=== PATIENT | male | born 1955 | race Caucasian/White ===

== ENCOUNTER 2019-12-28 08:29 | Emergency (ER) | payer MEDICAID ==
--- NOTE | 2019-12-28 08:53 | EDM.PDOC ---
ED HPI GENERAL MEDICAL PROBLEM - General Chief Complaint: Fever Stated Complaint: FEVER/COUGH Time Seen by Provider: 12/28/19 08:53 Source of Information: Reports: Patient History Limitations: Reports: No Limitations - History of Present Illness INITIAL COMMENTS - FREE TEXT/NARRATIVE: 64-year-old male attends the ED after an acute onset of illness occurred last November 20 with acute onset of fever chills headache, loss of appetite and paroxysmal cough. He states he spent the next 3 days in bed with fever chills and rigors and it was 3 days before he could start to have some soup and started to eat. He still coughing paroxysmal he had he started to run a fever again last night and therefore he was advised to come to the ED for follow-up by his primary care physician. Patient is a smoker. His appetite is slowly improving. He has not had any nausea vomiting or diarrhea. Still feeling fairly weak. Is day 9 post onset of illness. Onset: Sudden Onset Date: 12/19/19 Duration: Day(s):, Improving (Improving but fever came back last night with a few chills.) Location: Reports: Chest (Cough is better and nonproductive.) Quality: Reports: Other Severity: Moderate (Mild productive cough) Improves with: Reports: None Worsens with: Reports: Other (Activity and lying down) Context: Denies: Activity, Exercise, Lifting, Sick Contact, Trauma Associated Symptoms: Reports: Chest Pain, Cough, cough w sputum, Loss of Appetite, Malaise (Appetite is slowly improving.), Shortness of Breath, Weakness (Exertion. He regaining his strength.). Denies: No Other Symptoms ( Chest pain from coughing), Confusion, Diaphoresis, Fever/Chills, Headaches, Nausea/Vomiting Treatments NEGOTIATOR: Reports: Other (see below) - Related Data Allergies Allergy/AdvReac Type Severity Reaction Status Date / Time No Known Allergies Allergy Verified 07/08/16 18:51 Home Meds: Home Meds Pravastatin [Pravachol] 20 mg PO DAILY 07/08/16 [History] Doxycycline [Vibramycin] 100 mg PO BID #16 cap 12/28/19 [Rx] Levothyroxine 25 mcg PO ACBREAKFAST 12/28/19 [History] Past Medical History Cardiovascular History: Reports: High Cholesterol Social & Family History - Family History Family Medical History: Noncontributory - Caffeine Use Caffeine Use: Reports: Coffee Other Caffeine Use: 1 cup a day - Living Situation & Occupation Living situation: Reports: Single (He is living with his son who is currently coughing at this time and likely has influenza.) Occupation: Employed ED ROS GENERAL - Review of Systems Review Of Systems: See Below Constitutional: Reports: Fever (Still running a low-grade fever. Initial onset was high fever chills and Reiger's.), Malaise, Weakness HEENT: Reports: Glasses Respiratory: Reports: Shortness of Breath, Wheezing, Cough. Denies: Pleuritic Chest Pain, Sputum, Hemoptysis (Very little sputum production) Cardiovascular: Reports: Chest Pain, Blood Pressure Problem (Central chest discomfort from coughing), Dyspnea on Exertion. Denies: Claudication, Edema, Lightheadedness, Orthopnea Endocrine: Reports: Fatigue GI/Abdominal: Reports: Decreased Appetite. Denies: Diarrhea, Nausea (Appetite is slowly improving.), Vomiting : Reports: No Symptoms Musculoskeletal: Reports: Back Pain, Joint Pain Skin: Reports: No Symptoms (He sips shoulders at times) Neurological: Reports: No Symptoms Psychiatric: Reports: No Symptoms Hematologic/Lymphatic: Reports: No Symptoms ED EXAM, GENERAL - Physical Exam Exam: See Below Exam Limited By: No Limitations General Appearance: Alert, WD/WN, No Apparent Distress, Other (Temperature is 36.7 although he feels a bit warmer. Heart rate is 80 and sinus respiratory 16 O2 sats are 96% on room air BP was 149/82) Eye Exam: Bilateral Eye: Normal Inspection Ears: Normal TMs, Other (Good bit of cerumen bilaterally worse on the right side.) Throat/Mouth: Other Head: Atraumatic (Oropharynx is mildly diffusely erythematous from cigarette smoking with no exudate or signs of infection), Normocephalic Neck: Normal Inspection, Supple, Non-Tender, Full Range of Motion. No: Carotid Bruit, Lymphadenopathy (L), Lymphadenopathy (R) Respiratory/Chest: No Respiratory Distress, No Accessory Muscle Use, Chest Non- Tender, Decreased Breath Sounds (Sounds are minimally decreased to the bases bilaterally.), Rhonchi, Wheezing (Bilateral Tory wheezes). No: Lungs Clear ( Rhonchi anterior upper chest.), Normal Breath Sounds Cardiovascular: Normal Peripheral Pulses, Regular Rate, Rhythm, No Edema, No Gallop, No Murmur ( Stigmatism of COPD), No Rub Peripheral Pulses: 2+: Posterior Tibial (L), Posterior Tibial (R), Dorsalis Pedis (L), Dorsalis Pedis (R) GI/Abdominal: Normal Bowel Sounds, Soft, Non-Tender, No Organomegaly, No Mass, Pelvis Stable Back Exam: Normal Inspection, Full Range of Motion. No: CVA Tenderness (L), CVA Tenderness (R) Extremities: Normal Inspection, Normal Range of Motion, Non-Tender, No Pedal Edema Neurological: Alert, Oriented, CN II-XII Intact, Normal Cognition, Normal Gait Psychiatric: Normal Affect, Normal Mood Skin Exam: Warm, Dry, Intact, Normal Color, No Rash Course - Vital Signs Last Recorded V/S: Last Vital Signs Temp 36.7 C 12/28/19 08:48 Pulse 80 12/28/19 08:48 Resp 16 12/28/19 08:48 BP 149/82 H 12/28/19 08:48 Pulse Ox 96 12/28/19 08:48 - Orders/Labs/Meds Meds: Medications Discontinued Medications Generic Name Dose Route Start Last Admin Trade Name Freq PRN Reason Stop Dose Admin Ceftriaxone Sodium 1 gm 12/28/19 09:28 12/28/19 09:39 Rocephin IM 12/28/19 09:29 1 gm ONETIME ONE Administration Lidocaine HCl 2 ml 12/28/19 09:29 12/28/19 09:39 Xylocaine-Mpf 1% INJECT 12/28/19 09:30 2 ml ONETIME ONE Administration - Radiology Interpretation Free Text/Narrative:: 64-year-old male presents to the ED for evaluation of recurrence of fever after experiencing what clinically was influenza type a infection last November 20 with sudden onset of acute onset of fever headache paroxysmal productive cough fever chills Reiger's and loss of appetite. It took him about 5 days to recover and he felt that his fever was coming back last night with a bit of chills and cough is worsening again. He was therefore advised for 2 have follow-up carried out to make sure that he does not have pneumonia. He is a smoker. Examination reveals bilateral expiratory wheezes. An influenza screen will be done and 1 view chest x-ray. - Re-Assessments/Exams Free Text/Narrative Re-Assessment/Exam: 12/28/19 09:27 chest x-ray done portably reveals a normal cardiac silhouette. Lungs are mildly hyperinflated compatible with mild COPD changes. There is mild pulmonary fibrosis in both lower lobes. No pneumonia evident. The findings with the patient and decision made to give him Rocephin 1 g IM at his request as he wanted something that would work faster. He will then be placed on doxycycline 100 mg twice daily for another 9 days starting tomorrow. Follow- up as needed. Departure - Departure Time of Disposition: 09:50 Disposition: Home, Self-Care 01 Condition: Fair Clinical Impression: Bronchitis - Discharge Information *PRESCRIPTION DRUG MONITORING PROGRAM REVIEWED*: Not Applicable *COPY OF PRESCRIPTION DRUG MONITORING REPORT IN PATIENT SANDOR: Not Applicable Prescriptions: Doxycycline [Vibramycin] 100 mg PO BID #16 cap Instructions: Acute Bronchitis, Adult, [id number] Referrals: Tristen Cronin MD [Primary Care Provider] - Forms: ED Department Discharge Additional Instructions: Evaluation in the emergency room today in regards to acute illness i.e. influenza A that started last Tuesday acutely on November 20. This was associate with headache, fever chills, paroxysmal cough and loss of appetite. Unfortunately you continue to have a low-grade fever him chest congestion compatible with bronchitis. Chest x-ray done through the ED is negative for pneumonia but shows stigmata of emphysema from smoking. You were given an intramuscular injection of Rocephin 1 g which will start working in a couple of hours to help reduce infection. You need to start oral antibiotic doxycycline 100 mg twice daily for the next 8 days tomorrow to fully clear up infection. Continue Motrin 600 mg every 6 hours if needed for fever and/or aches or pains. Expect marked improvement over the next 48 to 72 hours. T of fluids such as Gatorade or Powerade to maintain hydration. Sepsis Event Note - Focused Exam Date Exam was Performed: 01/02/20 Time Exam was Performed: 14:27
[2019-12-28 08:54] VITALS: BP 149/82; PULSE 80
[2019-12-28] MEDS ORDERED: cefTRIAXone 1 GM Vial IM ONE (09:28)
[2019-12-28] MEDS ORDERED: Lidocaine 1% PF 2 ML SDV INJECT ONE (09:29)
--- NOTE | 2019-12-28 11:56 | CR ---
Chest: Portable view of the chest was obtained. Comparison: Prior chest x-ray of 07/08/60. Heart size and mediastinum are normal. Scoliosis and scattered disc space narrowing is noted within the spine. Lungs show no definite acute parenchymal change. Impression: 1. Findings as noted above. 2. Nothing acute is appreciated on portable chest x-ray. Diagnostic code #2 This report was dictated in MDT
== END 2019-12-28 10:14 | disposition home or self-care (01) ==
LOC: JD.ED 08:29
DX: J40 Bronchitis, not specified as acute or chronic (principal); E78.00 Pure hypercholesterolemia, unspecified; Z79.899 Other long term (current) drug therapy
CPT/HCPCS: 71045; 87804; 96372; 99283; J0696; J2001

== ENCOUNTER 2020-04-20 20:02 | Emergency (ER) | payer MEDICAID ==
--- NOTE | 2020-04-20 20:14 | EDM.PDOC ---
ED HPI GENERAL MEDICAL PROBLEM - General Chief Complaint: Respiratory Problem Stated Complaint: COUGHING BLOOD Time Seen by Provider: 04/20/20 20:10 - History of Present Illness INITIAL COMMENTS - FREE TEXT/NARRATIVE: 65-year-old male presents the emergency room with coughing up blood. This started yesterday after the patient fell in his garage striking his anterior chest on what sounds like a railroad tie. After this he started coughing up small amounts of blood that is mostly bright red. The patient has [id number] smoking history. The patient denies any calf or leg tenderness. He has not had any fevers or chills and prior to this did not have a cough. Patient denies any other problems at this time. Upper Abdomen Pain Score (Numeric/FACES): 2 - Related Data Allergies Allergy/AdvReac Type Severity Reaction Status Date / Time No Known Allergies Allergy Verified 07/08/16 18:51 Home Meds: Home Meds Pravastatin [Pravachol] 20 mg PO DAILY 07/08/16 [History] Levothyroxine 25 mcg PO ACBREAKFAST 12/28/19 [History] Aspirin 325 mg PO DAILY 04/20/20 [History] Doxycycline [Vibramycin] 100 mg PO BID #19 cap 04/20/20 [Rx] Past Medical History HEENT History: Reports: Impaired Vision Cardiovascular History: Reports: High Cholesterol Respiratory History: Reports: None Endocrine/Metabolic History: Reports: Hypothyroidism Social & Family History - Family History Family Medical History: Noncontributory - Caffeine Use Caffeine Use: Reports: Coffee Other Caffeine Use: 1 cup a day - Living Situation & Occupation Living situation: Reports: Single (He is living with his son who is currently coughing at this time and likely has influenza.) Occupation: Employed ED ROS GENERAL - Review of Systems Review Of Systems: See Below Constitutional: Reports: No Symptoms HEENT: Reports: No Symptoms Respiratory: Reports: Cough, Hemoptysis. Denies: Wheezing, Pleuritic Chest Pain Cardiovascular: Reports: No Symptoms Endocrine: Reports: No Symptoms GI/Abdominal: Reports: No Symptoms : Reports: No Symptoms Musculoskeletal: Reports: Other (Chest wall pain) Skin: Reports: No Symptoms Neurological: Reports: No Symptoms Psychiatric: Reports: No Symptoms Hematologic/Lymphatic: Reports: No Symptoms Immunologic: Reports: No Symptoms ED EXAM, GENERAL - Physical Exam Exam: See Below Exam Limited By: No Limitations General Appearance: Alert, No Apparent Distress, Other (Brought in some Kleenex with quarter size or smaller spots of blood saturation no clots seen the blood is bright red fairly mild bleeding.) Eye Exam: Bilateral Eye: Normal Inspection Ears: Normal External Exam, Normal Canal, Hearing Grossly Normal, Normal TMs Nose: Normal Inspection, Normal Mucosa, No Blood Throat/Mouth: Normal Inspection, Normal Lips, Normal Oropharynx, No Airway Compromise, Perioral Cyanosis. No: Normal Teeth (Poor teeth ) Respiratory/Chest: No Respiratory Distress, Lungs Clear, Normal Breath Sounds GI/Abdominal: Normal Bowel Sounds, Soft, Non-Tender, Other (His abdominal exam is normal now what he was describing from yesterday seemed like some tenderness in the midepigastric area may be associated with the xiphoid) Back Exam: Normal Inspection. No: CVA Tenderness (L), CVA Tenderness (R) Extremities: Normal Inspection Skin Exam: Warm, Dry, Intact Lymphatic: No Adenopathy EKG INTERPRETATION EKG Date: 04/20/20 Rhythm: NSR [place]: Normal P-Wave: Present QRS: Other (Fairly normal QRS with the exception of RSR in lead V1 and V2) ST-T: Normal QT: Normal Comparison: No Change (Having a change from EKG done in July 08, 2016) EKG Interpretation Comments: Borderline EKG Course - Vital Signs Last Recorded V/S: Last Vital Signs Temp 36.7 C 04/20/20 20:09 Pulse 81 04/20/20 20:09 Resp 20 04/20/20 20:09 BP 178/94 H 04/20/20 20:09 Pulse Ox 95 04/20/20 20:09 - Orders/Labs/Meds Orders: Active Orders 24 hr Category Date Time Status EKG Documentation Completion [RC] STAT Care 04/20/20 20:23 Active Ang Chest [CT] Stat Exams 04/20/20 20:25 Taken Sodium Chloride 0.9% [Normal Saline] 100 ml Med 04/20/20 21:15 Active IV ASDIRECTED Sodium Chloride 0.9% [Saline Flush] Med 04/20/20 21:14 Active 10 ml FLUSH ONETIME PRN Medication Orders Sodium Chloride (Normal Saline) 100 mls @ 60 mls/hr IV ASDIRECTED KARINA Last Admin: 04/20/20 21:33 Dose: 60 mls/hr Documented by: [id number] Sodium Chloride (Saline Flush) 10 ml FLUSH ONETIME PRN PRN Reason: Keep Vein Open Last Admin: 04/20/20 21:33 Dose: 10 ml Documented by: [email or web address] Labs: Laboratory Tests 04/20/20 04/20/20 04/20/20 Range/Units 20:36 20:36 20:36 WBC 8.90 (4.23-9.07) K/mm3 RBC 5.41 (4.63-6.08) M/mm3 Hgb 16.0 (13.7-17.5) gm/dl Hct 47.8 (40.1-51.0) % MCV 88.4 (79.0-92.2) fl MCH 29.6 (25.7-32.2) pg MCHC 33.5 (32.2-35.5) g/dl RDW Std Deviation 43.6 (35.1-43.9) fL Plt Count 251 (163-337) K/mm3 MPV 9.6 (9.4-12.3) fl Neut % (Auto) 59.5 (34.0-67.9) % Lymph % (Auto) 29.0 (21.8-53.1) % Esmeralda % (Auto) 7.2 (5.3-12.2) % Eos % (Auto) 3.6 (0.8-7.0) Baso % (Auto) 0.6 (0.1-1.2) % Neut # (Auto) 5.30 (1.78-5.38) K/mm3 Lymph # (Auto) 2.58 (1.32-3.57) K/mm3 Esmeralda # (Auto) 0.64 (0.30-0.82) K/mm3 Eos # (Auto) 0.32 (0.04-0.54) K/mm3 Baso # (Auto) 0.05 (0.01-0.08) K/mm3 PT 10.3 (9.7-12.0) SECONDS INR 0.94 APTT 29 (22-31) SECONDS Sodium 141 (136-145) mEq/L Potassium 3.7 (3.5-5.1) mEq/L Chloride 105 (98-107) mEq/L Carbon Dioxide 26 (21-32) mEq/L Anion Gap 13.7 (5-15) BUN 13 (7-18) mg/dL Creatinine 0.9 (0.7-1.3) mg/dL Est Cr Clr Drug Dosing 74.48 mL/min Estimated GFR (MDRD) > 60 (>60) mL/min BUN/Creatinine Ratio 14.4 (14-18) Glucose 99 (80-115) mg/dL Calcium 8.6 (8.5-10.1) mg/dL Total Bilirubin 0.3 (0.2-1.0) mg/dL AST 16 (15-37) U/L ALT 25 (16-63) U/L Alkaline Phosphatase 83 (46-116) U/L Troponin I < 0.017 (0.00-0.056) ng/mL Total Protein 7.1 (6.4-8.2) g/dl Albumin 3.4 (3.4-5.0) g/dl Globulin 3.7 gm/dL Albumin/Globulin Ratio 0.9 L (1-2) Meds: Medications Generic Name Dose Route Start Last Admin Trade Name Freq PRN Reason Stop Dose Admin Sodium Chloride 100 mls @ 60 mls/hr 04/20/20 21:15 04/20/20 21:33 Normal Saline IV 60 mls/hr ASDIRECTED KARINA Administration Sodium Chloride 10 ml 04/20/20 21:14 04/20/20 21:33 Saline Flush FLUSH 10 ml ONETIME PRN Administration Keep Vein Open Discontinued Medications Generic Name Dose Route Start Last Admin Trade Name Freq PRN Reason Stop Dose Admin Sodium Chloride 500 mls @ 999 mls/hr 04/20/20 20:24 04/20/20 20:34 Normal Saline IV 04/20/20 20:54 999 mls/hr .BOLUS ONE Administration Iopamidol 100 ml 04/20/20 21:14 04/20/20 21:33 [id number] (76%) IVPUSH 04/20/20 21:15 100 ml ONETIME ONE Administration - Re-Assessments/Exams Free Text/Narrative Re-Assessment/Exam: 04/20/20 21:15 Laboratory is essentially nondiagnostic his troponin is negative so probably does not have a cardiac contusion from his fall yesterday awaiting on the CTA. Did not check a d-dimer as it most likely would been positive anyway with the recent fall. And with a smoking history the CT might be most beneficial. He received a gentle fluid bolus prior to going to CT. 04/20/20 22:52 Chest CTA was done with no signs of acute injury he has some bronchial interstitial thickening. Patient has not a frequent cough but not a rare cough is usually nonproductive until the blood started coming and this is intermittent. The interstitial thickening could be related to a bronchitis we will put him on a week's worth of doxycycline and have him follow-up in the clinic later this week. The patient has not coughed up any blood while here in the emergency department. Departure - Departure Time of Disposition: 22:55 Disposition: Home, Self-Care 01 Clinical Impression: Bronchitis, Cough with hemoptysis - Discharge Information Referrals: Tristen Cronin MD [Primary Care Provider] - Forms: ED Department Discharge Additional Instructions: Return to the emergency room with any questions problems or worsening symptoms. You have been started on doxycycline for possible bronchitis. Take 1 pill twice daily until all gone. Over time the blood your coughing a should improve. Follow-up with your regular physician the middle of this week. Sepsis Event Note (ED) - Evaluation Sepsis Screening Result: No Definite Risk - Focused Exam Vital Signs: Vital Signs Temp Pulse Resp BP Pulse Ox 04/20/20 20:09 36.7 C 81 20 178/94 H 95 - My Orders Last 24 Hours: My Active Orders 04/20/20 20:23 EKG Documentation Completion [RC] STAT 04/20/20 20:25 Ang Chest [CT] Stat 04/20/20 21:14 Sodium Chloride 0.9% [Saline Flush] 10 ml FLUSH ONETIME PRN 04/20/20 21:15 Sodium Chloride 0.9% [Normal Saline] 100 ml IV ASDIRECTED - Assessment/Plan Last 24 Hours: My Active Orders 04/20/20 20:23 EKG Documentation Completion [RC] STAT 04/20/20 20:25 Ang Chest [CT] Stat 04/20/20 21:14 Sodium Chloride 0.9% [Saline Flush] 10 ml FLUSH ONETIME PRN 04/20/20 21:15 Sodium Chloride 0.9% [Normal Saline] 100 ml IV ASDIRECTED
[2020-04-20] MEDS ORDERED: Sodium Chloride 0.9% 500 ML IV ONE (20:24)
[2020-04-20 20:36] VITALS: BP 178/94; PULSE 81
[2020-04-20] MEDS ORDERED: Iopamidol 755 Mg/ML 100 ML Bottle IVPUSH ONE (21:14)
[2020-04-20] MEDS ORDERED: Sodium Chloride 0.9% 10 ML Syringe FLUSH PRN (21:14)
[2020-04-20] MEDS ORDERED: Sodium Chloride 0.9% 100 ML IV SCH (21:15)
[2020-04-20] MEDS ORDERED: Doxycycline 100 MG Cap PO ONE (22:53)
--- NOTE | 2020-04-21 07:04 | CT ---
CT chest Technique: Multiple axial sections through the chest were obtained. Intravenous contrast was utilized. Study has been performed as a pulmonary angiogram protocol. Comparison: Prior chest x-ray of 12/28/19 is available. Findings: Pulmonary arteries are well opacified. No filling defects are seen to indicate pulmonary embolism. Mediastinum and hilar region show no adenopathy. Aorta shows atherosclerotic calcification without aneurysm. Visualized upper abdominal structures shows no discrete abnormality. Diffuse emphysematous change is noted within both lungs. Nodular density noted within the right lung base measuring 1.1 cm. No acute parenchymal density is seen within either lung. No pleural effusions are noted. No pneumothorax is seen. Bone window settings were reviewed which shows no acute osseous finding. Diffuse degenerative change noted within the spine. Impression: 1. No findings of pulmonary embolism. 2. Nodule within the right lung base, differential of a solitary pulmonary nodule with neoplasm being high within the differential. Recommend repeat chest CT study in 3 months or referral for PET/CT to further evaluate. 3. Emphysematous change. Interstitial change is seen believed to represent mild fibrosis secondary to the emphysematous change. 4. Nothing acute is otherwise appreciated on CT study of the abdomen and pelvis performed as a pulmonary angiogram protocol. Diagnostic code #9 This report was dictated in MDT I agree with preliminary report from [facility] (additional note and recommendation as noted above), finalized on 04/20/20, 11:01 PM Central Daylight Time, code #2
== END 2020-04-20 23:15 | disposition home or self-care (01) ==
LOC: JD.ED 20:02
DX: J40 Bronchitis, not specified as acute or chronic (principal); R04.2 Hemoptysis; E78.00 Pure hypercholesterolemia, unspecified; E03.9 Hypothyroidism, unspecified; Z79.82 Long term (current) use of aspirin; Z79.899 Other long term (current) drug therapy
CPT/HCPCS: 36415; 71275; 80053; 84484; 85025; 85610; 85730; 93005; 99284; A9270; J7030; J7050; Q9967